=== PATIENT | female | born 1975 | race Caucasian/White ===

== ENCOUNTER 2020-10-29 11:01 | Emergency (ER) | payer MEDICAID ==
[~2020-10-29] VITALS: Ht 157.5 cm; Wt 63.0 kg
[2020-10-29 11:18] VITALS: BP_SYST 129
--- NOTE | 2020-10-29 11:20 | NUR ---
Pt. placed in bed 4 by Markos, report rec'd
--- NOTE | 2020-10-29 11:30 | NUR ---
pt. came in with c/o right sided lower quadrant abd pain with N/V for 4 days, rates pain 12/10
--- NOTE | 2020-10-29 11:36 | NUR ---
ER at bedside examining patient.
[2020-10-29] MEDS ORDERED: KETOROLAC TROMETHAMINE 60 MG/2 ML VIAL IM ONE (11:45)
[2020-10-29 12:11] LABS: BASOPHILS % (AUTO) 0.4 % (0.0-2.0); EOSINOPHILS % (AUTO) 0.8 % (0.0-4.0); HEMATOCRIT 38.3 % (36-48); HEMOGLOBIN 12.7 g/dL (12.0-16.0); LYMPHOCYTES # (AUTO) 2.9 K/uL (1.0-5.5); LYMPHOCYTES % (AUTO) 45.5 % (20.5-51.5); MEAN CORPUSCULAR HEMOGLOBIN 30 pg (27-31); MEAN CORPUSCULAR HGB CONC 33 % (32-36); MEAN CORPUSCULAR VOLUME 90 fL (79.0-98.0); MONOCYTES # (AUTO) 0.4 K/uL (0.0-1.0); MONOCYTES % (AUTO) 7.1 % (1.7-9.3); NEUTROPHILS # (AUTO) 2.9 K/uL (1.8-7.7); NEUTROPHILS % (AUTO) 46.2 % (40.0-70.0); PLATELET COUNT (AUTO) 193 K/uL (130-430); RED BLOOD CELL COUNT(AUTO) 4.25 MIL/uL (4.2-6.2); WHITE BLOOD COUNT (AUTO) 6.3 K/uL (4.8-10.8)
--- NOTE | 2020-10-29 12:13 | NUR ---
pt returned from CT scan, IM toradol given
[2020-10-29 12:23] LABS: CALCIUM 8.5 mg/dL (8.4-11.0); CREATININE 0.79 mg/dL (0.55-1.30); POTASSIUM 3.5 mmol/L (3.5-5.1)
[2020-10-29 12:29] LABS: ALBUMIN 3.7 g/dL (3.4-4.8); TOTAL BILIRUBIN 0.3 mg/dL (0.0-1.0)
[2020-10-29] MEDS ORDERED: TRAM50TA PO (12:47)
[2020-10-29] MEDS ORDERED: MAGN296S30 PO ×2 (12:47→13:03)
[2020-10-29 13:11] VITALS: BP_SYST 102
--- NOTE | 2020-10-29 13:12 | NUR ---
Patient given written and verbal discharge instructions and verbalizes understanding. Dr. Yanez discussed with patient the results and treatment provided. Patient in stable condition. ID arm band removed. Rx of Magnesium Citrate and Tramadol given. Patient educated on pain management and to follow up with PMD. Pain Scale 3. Opportunity for questions provided and answered. Medication side effect fact sheet provided.
== END 2020-10-29 13:11 | disposition home or self-care (01) ==
LOC: SED 11:01
DX: R10.31 Right lower quadrant pain (principal); R11.0 Nausea; Z79.899 Other long term (current) drug therapy
CPT/HCPCS: 36415; 74176; 76376; 80053; 81002; 83690; 85025; 96372; 99284; J1885

== ENCOUNTER 2021-07-16 12:50 | Inpatient (IN) | payer MEDICAID, SELFPAY ==
[~2021-07-16] VITALS: Ht 157.5 cm; Wt 64.0 kg
[~2021-07-16 12:50] MED LIST: MAGN296S8 PO; TRAM50TA PO
[2021-07-16 13:09] VITALS: BP_SYST 119
[2021-07-16 13:36] LABS: BILIRUBIN,URINE NEGATIVE (NEGATIVE); BLOOD, URINE 2+ (NEGATIVE); CLARITY/URINE SL CLOUDY (CLEAR); COLOR,URINE YELLOW (YELLOW); GLUCOSE,URINE NEGATIVE (NEGATIVE); KETONES,URINE TRACE (NEGATIVE); LEUKOCYTE ESTERASE ,URINE 1+ (NEGATIVE); NITRITE, URINE NEGATIVE (NEGATIVE); PROTEIN URINE TRACE (NEGATIVE)
[2021-07-16 14:14] LABS: CALCIUM 8.6 mg/dL (8.4-11.0); CREATININE 0.79 mg/dL (0.55-1.30); POTASSIUM 3.8 mmol/L (3.5-5.1)
[2021-07-16] MEDS ORDERED: KETOROLAC TROMETHAMINE 30 MG VIAL IVP ONE (14:15)
[2021-07-16] MEDS ORDERED: NACL 0.9% 2,000 ML IV ONE (14:15)
[2021-07-16] MEDS ORDERED: PIPERACILLIN/TAZO 3.375 GM in NS 50 ML IV ONE (14:15)
[2021-07-16 14:19] LABS: ALBUMIN 3.4 g/dL (3.4-4.8); C-REACTIVE PROTEIN QUANT 9.4 mg/dL (0-0.5); TOTAL BILIRUBIN 1.1 mg/dL (0.0-1.0)
[2021-07-16 14:20] LABS: BASOPHILS % (AUTO) 0.2 % (0.0-2.0); EOSINOPHILS % (AUTO) 0.4 % (0.0-4.0); HEMOGLOBIN 13.2 g/dL (12.0-16.0); LYMPHOCYTES # (AUTO) 1.7 K/uL (1.0-5.5); LYMPHOCYTES % (AUTO) 15.5 % (20.5-51.5); MEAN CORPUSCULAR HEMOGLOBIN 28 pg (27-31); MEAN CORPUSCULAR HGB CONC 33 % (32-36); MEAN CORPUSCULAR VOLUME 86 fL (79.0-98.0); MONOCYTES # (AUTO) 0.7 K/uL (0.0-1.0); MONOCYTES % (AUTO) 6.7 % (1.7-9.3); NEUTROPHILS # (AUTO) 8.5 K/uL (1.8-7.7); NEUTROPHILS % (AUTO) 77.2 % (40.0-70.0); PLATELET COUNT (AUTO) 237 K/uL (130-430); RED BLOOD CELL COUNT(AUTO) 4.66 MIL/uL (4.2-6.2); RED CELL DISTRIBUTION WIDTH 14.5 % (9.0-15.0); WHITE BLOOD COUNT (AUTO) 10.9 K/uL (4.8-10.8)
[2021-07-16 14:22] LABS: BACTERIA,URINE FEW /HPF (None Seen)
[2021-07-16] MEDS ORDERED: PIPERACILLIN/TAZOBACTAM 3.375 GM/VIAL (ZOSYN) IV ONE (14:26)
[2021-07-16] MEDS ORDERED: PHENAZOPYRIDINE HCL 100 MG TABLET PO ONE (16:15)
[2021-07-16] MEDS ORDERED: LACTULOSE 20 GM/30 ML UDC PO ONE (16:30)
[2021-07-16] MEDS ORDERED: GENTAMICIN 120 mg/100 mL NS 100 ML IV ONE (16:30)
[2021-07-16] MEDS ORDERED: MAGNESIUM CITRATE 300 ML ORAL SOLUTION PO ONE (16:30)
[2021-07-16] MEDS ORDERED: FAMOTIDINE PF 20 MG/2 ML VIAL IVP ONE (16:45)
[2021-07-16] MEDS ORDERED: TEMAZEPAM 15 MG CAPSULE PO PRN (17:00)
[2021-07-16] MEDS ORDERED: MINERAL OIL 133 ML ENEMA RC ONE (17:00)
[2021-07-16] MEDS ORDERED: SODIUM PHOSPHATE,MONO-DIBASIC 133 ML ENEMA RC ONE (17:00)
[2021-07-16 17:53] VITALS: BP_SYST 92
[2021-07-16] MEDS: PHENAZOPYRIDINE HCL 100 MG TABLET PO SCH (18:30)
[2021-07-16 20:00] VITALS: BP_SYST 116
[2021-07-16] MEDS: PIPERACILLIN/TAZO 3.375/DEX-IS 50 ML IV SCH (20:44)
[2021-07-16] MEDS: NACL 0.9% 1,000 ML IV SCH (20:48)
[2021-07-16] MEDS: FAMOTIDINE PF 20 MG/2 ML VIAL IVP SCH (21:00)
[2021-07-16] MEDS: DOCUSATE SODIUM 250 MG CAPSULE PO SCH (22:13)
[2021-07-16] MEDS: LACTOBACILLUS RHAMNOSUS GG 1 CAP CAPSULE PO SCH (22:14)
[2021-07-17 00:30] VITALS: BP_SYST 106
[2021-07-17] MEDS: ACETAMINOPHEN 325 MG TABLET PO PRN ×3 (00:46→17:49)
[2021-07-17] MEDS: PIPERACILLIN/TAZO 3.375/DEX-IS 50 ML IV SCH ×4 (01:16→17:49)
[2021-07-17] MEDS: NACL 0.9% 1,000 ML IV SCH ×2 (03:12→11:31)
[2021-07-17 07:19] LABS: ALBUMIN 2.7 g/dL (3.4-4.8); CALCIUM 8.2 mg/dL (8.4-11.0); CREATININE 0.82 mg/dL (0.55-1.30); POTASSIUM 3.4 mmol/L (3.5-5.1); TOTAL BILIRUBIN 0.6 mg/dL (0.0-1.0)
[2021-07-17 08:00] VITALS: BP_SYST 94
[2021-07-17 08:08] LABS: BASOPHILS % (AUTO) 0.3 % (0.0-2.0); EOSINOPHILS # (AUTO) 0.1 K/uL (0.0-0.4); EOSINOPHILS % (AUTO) 0.4 % (0.0-4.0); HEMATOCRIT 36.6 % (36-48); HEMOGLOBIN 11.7 g/dL (12.0-16.0); MEAN CORPUSCULAR HEMOGLOBIN 28 pg (27-31); MEAN CORPUSCULAR HGB CONC 32 % (32-36); MEAN CORPUSCULAR VOLUME 88 fL (79.0-98.0); MONOCYTES # (AUTO) 0.8 K/uL (0.0-1.0); MONOCYTES % (AUTO) 6.8 % (1.7-9.3); NEUTROPHILS # (AUTO) 8.1 K/uL (1.8-7.7); NEUTROPHILS % (AUTO) 67.5 % (40.0-70.0); PLATELET COUNT (AUTO) 220 K/uL (130-430); RED BLOOD CELL COUNT(AUTO) 4.19 MIL/uL (4.2-6.2); RED CELL DISTRIBUTION WIDTH 14.6 % (9.0-15.0); WHITE BLOOD COUNT (AUTO) 12.1 K/uL (4.8-10.8)
[2021-07-17] MEDS: DOCUSATE SODIUM 250 MG CAPSULE PO SCH ×3 (09:00→21:42)
[2021-07-17] MEDS: PHENAZOPYRIDINE HCL 100 MG TABLET PO SCH ×3 (09:10→17:49)
[2021-07-17] MEDS: FAMOTIDINE PF 20 MG/2 ML VIAL IVP SCH ×2 (09:10→21:45)
[2021-07-17] MEDS: LACTOBACILLUS RHAMNOSUS GG 1 CAP CAPSULE PO SCH ×2 (09:12→21:43)
[2021-07-17] MEDS ORDERED: POTASSIUM CHLORIDE 20 MEQ TAB.PRT.SR PO ONE (12:15)
[2021-07-17 12:17] VITALS: BP_SYST 110
[2021-07-17] MEDS ORDERED: MAGNESIUM OXIDE 400 MG TABLET PO ONE (13:00)
[2021-07-17 16:52] VITALS: BP_SYST 109
[2021-07-17] MEDS: MAGNESIUM OXIDE 400 MG TABLET PO SCH (21:43)
[2021-07-18] MEDS: MORPHINE 4 MG INJ. 4 MG/ML VIAL IVP PRN ×4 (00:54→12:17)
[2021-07-18] MEDS: ACETAMINOPHEN 325 MG TABLET PO PRN ×3 (00:57→21:58)
[2021-07-18] MEDS: NACL 0.9% 1,000 ML IV SCH ×3 (00:58→16:32)
[2021-07-18] MEDS: PIPERACILLIN/TAZO 3.375/DEX-IS 50 ML IV SCH ×4 (00:58→16:31)
[2021-07-18 05:08] VITALS: BP_SYST 96
[2021-07-18 07:27] LABS: BASOPHILS % (AUTO) 0.3 % (0.0-2.0); EOSINOPHILS % (AUTO) 0.4 % (0.0-4.0); HEMATOCRIT 36.5 % (36-48); LYMPHOCYTES # (AUTO) 2.4 K/uL (1.0-5.5); MEAN CORPUSCULAR HEMOGLOBIN 28 pg (27-31); MEAN CORPUSCULAR HGB CONC 33 % (32-36); MEAN CORPUSCULAR VOLUME 87 fL (79.0-98.0); MONOCYTES # (AUTO) 0.8 K/uL (0.0-1.0); MONOCYTES % (AUTO) 6.5 % (1.7-9.3); NEUTROPHILS # (AUTO) 8.6 K/uL (1.8-7.7); NEUTROPHILS % (AUTO) 72.8 % (40.0-70.0); PLATELET COUNT (AUTO) 228 K/uL (130-430); RED BLOOD CELL COUNT(AUTO) 4.21 MIL/uL (4.2-6.2); RED CELL DISTRIBUTION WIDTH 14.3 % (9.0-15.0); WHITE BLOOD COUNT (AUTO) 11.8 K/uL (4.8-10.8)
[2021-07-18 08:00] VITALS: BP_SYST 102
[2021-07-18] MEDS: DOCUSATE SODIUM 250 MG CAPSULE PO SCH ×3 (08:14→21:17)
[2021-07-18] MEDS: FAMOTIDINE PF 20 MG/2 ML VIAL IVP SCH ×2 (08:14→21:19)
[2021-07-18] MEDS: MAGNESIUM OXIDE 400 MG TABLET PO SCH ×2 (08:14→21:18)
[2021-07-18] MEDS: LACTOBACILLUS RHAMNOSUS GG 1 CAP CAPSULE PO SCH ×2 (08:15→21:18)
[2021-07-18] MEDS: PHENAZOPYRIDINE HCL 100 MG TABLET PO SCH ×3 (08:15→16:31)
[2021-07-18 08:52] LABS: CALCIUM 8.6 mg/dL (8.4-11.0); CREATININE 0.62 mg/dL (0.55-1.30); POTASSIUM 3.8 mmol/L (3.5-5.1)
[2021-07-18 12:00] VITALS: BP_SYST 106
[2021-07-18] MEDS ORDERED: DOCUSATE SODIUM 100 MG CAPSULE PO ONE (15:15)
[2021-07-18 16:00] VITALS: BP_SYST 99
[2021-07-18] MEDS: BISACODYL 5 MG TABLET.DR (DULCOLAX) PO PRN (16:44)
[2021-07-19] MEDS: PIPERACILLIN/TAZO 3.375/DEX-IS 50 ML IV SCH ×5 (00:19→23:24)
[2021-07-19 00:25] VITALS: BP_SYST 106
[2021-07-19] MEDS: NACL 0.9% 1,000 ML IV SCH ×2 (05:52→17:44)
[2021-07-19] MEDS: MORPHINE 4 MG INJ. 4 MG/ML VIAL IVP PRN ×3 (06:16→16:21)
[2021-07-19 08:31] VITALS: BP_SYST 98
[2021-07-19] MEDS: PHENAZOPYRIDINE HCL 100 MG TABLET PO SCH ×3 (08:41→17:45)
[2021-07-19] MEDS: DOCUSATE SODIUM 250 MG CAPSULE PO SCH ×3 (08:42→20:52)
[2021-07-19] MEDS: traMADol HCL HCL 50 MG TABLET (ULTRAM) PO PRN (08:42)
[2021-07-19] MEDS: FAMOTIDINE PF 20 MG/2 ML VIAL IVP SCH ×2 (08:43→21:02)
[2021-07-19] MEDS: LACTOBACILLUS RHAMNOSUS GG 1 CAP CAPSULE PO SCH ×2 (08:43→20:48)
[2021-07-19] MEDS: MAGNESIUM OXIDE 400 MG TABLET PO SCH ×2 (08:43→20:48)
[2021-07-19 09:24] LABS: BASOPHILS % (AUTO) 0.2 % (0.0-2.0); EOSINOPHILS # (AUTO) 0.1 K/uL (0.0-0.4); EOSINOPHILS % (AUTO) 0.5 % (0.0-4.0); HEMATOCRIT 37.2 % (36-48); LYMPHOCYTES % (AUTO) 17.6 % (20.5-51.5); MEAN CORPUSCULAR HEMOGLOBIN 28 pg (27-31); MEAN CORPUSCULAR HGB CONC 32 % (32-36); MEAN CORPUSCULAR VOLUME 86 fL (79.0-98.0); MONOCYTES # (AUTO) 0.6 K/uL (0.0-1.0); MONOCYTES % (AUTO) 5.2 % (1.7-9.3); NEUTROPHILS # (AUTO) 8.8 K/uL (1.8-7.7); NEUTROPHILS % (AUTO) 76.5 % (40.0-70.0); PLATELET COUNT (AUTO) 240 K/uL (130-430); RED BLOOD CELL COUNT(AUTO) 4.33 MIL/uL (4.2-6.2); RED CELL DISTRIBUTION WIDTH 14.4 % (9.0-15.0); WHITE BLOOD COUNT (AUTO) 11.6 K/uL (4.8-10.8)
[2021-07-19 09:51] LABS: ALBUMIN 2.6 g/dL (3.4-4.8); CALCIUM 8.6 mg/dL (8.4-11.0); CREATININE 0.72 mg/dL (0.55-1.30); POTASSIUM 3.2 mmol/L (3.5-5.1); TOTAL BILIRUBIN 0.4 mg/dL (0.0-1.0)
[2021-07-19 11:03] LABS: ERYTHROCYTE SEDIMENTATION RATE 79 MM/HR (0-20)
[2021-07-19 12:00] VITALS: BP_SYST 95
[2021-07-19] MEDS: ACETAMINOPHEN 325 MG TABLET PO PRN ×2 (13:51→21:20)
[2021-07-19] MEDS ORDERED: POTASSIUM CHLORIDE 20 MEQ TAB.PRT.SR PO ONE (15:45)
[2021-07-19 16:13] VITALS: BP_SYST 100
[2021-07-19] MEDS ORDERED: FLUCONAZOLE 200 MG TABLET (DIFLUCAN) PO ONE (17:30)
[2021-07-19 20:00] VITALS: BP_SYST 99
[2021-07-19 20:41] LABS: BILIRUBIN,URINE NEGATIVE (NEGATIVE); BLOOD, URINE 1+ (NEGATIVE); CLARITY/URINE CLEAR (CLEAR); COLOR,URINE YELLOW (YELLOW); GLUCOSE,URINE TRACE (NEGATIVE); KETONES,URINE NEGATIVE (NEGATIVE); LEUKOCYTE ESTERASE ,URINE TRACE (NEGATIVE); NITRITE, URINE POSITIVE (NEGATIVE); PROTEIN URINE NEGATIVE (NEGATIVE)
[2021-07-19] MEDS: POTASSIUM CHLORIDE 20 MEQ TAB.PRT.SR PO SCH (20:48)
[2021-07-19] MEDS: ONDANSETRON HCL 4 MG/2 ML VIAL IVP PRN (21:02)
[2021-07-19 21:13] LABS: BACTERIA,URINE MODERATE /HPF (None Seen)
[2021-07-20] VITALS: BP_SYST 99
[2021-07-20] MEDS: NACL 0.9% 1,000 ML IV SCH ×3 (00:45→17:51)
[2021-07-20] MEDS: PIPERACILLIN/TAZO 3.375/DEX-IS 50 ML IV SCH ×4 (06:37→23:38)
[2021-07-20] MEDS: MORPHINE 4 MG INJ. 4 MG/ML VIAL IVP PRN (06:51)
[2021-07-20] MEDS: ONDANSETRON HCL 4 MG/2 ML VIAL IVP PRN (06:53)
[2021-07-20 08:00] VITALS: BP_SYST 97
[2021-07-20] MEDS: LACTOBACILLUS RHAMNOSUS GG 1 CAP CAPSULE PO SCH ×2 (08:30→20:54)
[2021-07-20] MEDS: MAGNESIUM OXIDE 400 MG TABLET PO SCH ×2 (08:30→20:55)
[2021-07-20] MEDS: PHENAZOPYRIDINE HCL 100 MG TABLET PO SCH ×3 (08:30→17:36)
[2021-07-20] MEDS: DOCUSATE SODIUM 250 MG CAPSULE PO SCH ×2 (08:30→20:55)
[2021-07-20] MEDS: FLUCONAZOLE 100 MG TABLET (DIFLUCAN) PO SCH (08:30)
[2021-07-20] MEDS: POTASSIUM CHLORIDE 20 MEQ TAB.PRT.SR PO SCH ×2 (08:30→20:54)
[2021-07-20] MEDS: FAMOTIDINE PF 20 MG/2 ML VIAL IVP SCH ×2 (08:31→20:54)
[2021-07-20 09:29] LABS: BASOPHILS % (AUTO) 0.1 % (0.0-2.0); EOSINOPHILS # (AUTO) 0.1 K/uL (0.0-0.4); EOSINOPHILS % (AUTO) 0.6 % (0.0-4.0); HEMATOCRIT 34.5 % (36-48); HEMOGLOBIN 11.4 g/dL (12.0-16.0); LYMPHOCYTES % (AUTO) 18.4 % (20.5-51.5); MEAN CORPUSCULAR HEMOGLOBIN 29 pg (27-31); MEAN CORPUSCULAR HGB CONC 33 % (32-36); MEAN CORPUSCULAR VOLUME 86 fL (79.0-98.0); MONOCYTES # (AUTO) 0.8 K/uL (0.0-1.0); MONOCYTES % (AUTO) 7.5 % (1.7-9.3); NEUTROPHILS # (AUTO) 7.9 K/uL (1.8-7.7); NEUTROPHILS % (AUTO) 73.4 % (40.0-70.0); PLATELET COUNT (AUTO) 238 K/uL (130-430); RED BLOOD CELL COUNT(AUTO) 3.99 MIL/uL (4.2-6.2); RED CELL DISTRIBUTION WIDTH 14.2 % (9.0-15.0); WHITE BLOOD COUNT (AUTO) 10.7 K/uL (4.8-10.8)
[2021-07-20 09:45] LABS: CALCIUM 8.9 mg/dL (8.4-11.0); CREATININE 0.67 mg/dL (0.55-1.30); POTASSIUM 3.7 mmol/L (3.5-5.1)
[2021-07-20 09:49] LABS: C-REACTIVE PROTEIN QUANT 13.8 mg/dL (0-0.5)
[2021-07-20 10:08] LABS: ERYTHROCYTE SEDIMENTATION RATE 85 MM/HR (0-20)
[2021-07-20] MEDS: traMADol HCL HCL 50 MG TABLET (ULTRAM) PO PRN ×2 (11:17→23:37)
[2021-07-20 16:18] VITALS: BP_SYST 95
[2021-07-20 20:37] VITALS: BP_SYST 105
[2021-07-21 01:34] VITALS: BP_SYST 99
[2021-07-21] MEDS: NACL 0.9% 1,000 ML IV SCH ×2 (05:36→17:47)
[2021-07-21] MEDS: MORPHINE 4 MG INJ. 4 MG/ML VIAL IVP PRN ×2 (05:37→21:17)
[2021-07-21] MEDS: PIPERACILLIN/TAZO 3.375/DEX-IS 50 ML IV SCH ×3 (05:48→17:46)
[2021-07-21 08:15] VITALS: BP_SYST 95
[2021-07-21] MEDS ORDERED: POTASSIUM CHLORIDE 20 MEQ TAB.PRT.SR ONE (09:53)
[2021-07-21] MEDS: POTASSIUM CHLORIDE 20 MEQ TAB.PRT.SR PO SCH ×2 (09:56→20:54)
[2021-07-21] MEDS: MAGNESIUM OXIDE 400 MG TABLET PO SCH ×2 (09:56→20:54)
[2021-07-21] MEDS: LACTOBACILLUS RHAMNOSUS GG 1 CAP CAPSULE PO SCH ×2 (09:56→20:54)
[2021-07-21] MEDS: FLUCONAZOLE 100 MG TABLET (DIFLUCAN) PO SCH (09:57)
[2021-07-21] MEDS: DOCUSATE SODIUM 250 MG CAPSULE PO SCH ×2 (09:57→20:54)
[2021-07-21] MEDS: FAMOTIDINE PF 20 MG/2 ML VIAL IVP SCH ×2 (09:58→20:54)
[2021-07-21] MEDS: PHENAZOPYRIDINE HCL 100 MG TABLET PO SCH ×3 (09:58→17:45)
[2021-07-21 12:05] VITALS: BP_SYST 98
[2021-07-21] MEDS: traMADol HCL HCL 50 MG TABLET (ULTRAM) PO PRN (12:11)
[2021-07-21 16:50] VITALS: BP_SYST 100
[2021-07-21 22:29] VITALS: BP_SYST 99
[2021-07-22] MEDS: PIPERACILLIN/TAZO 3.375/DEX-IS 50 ML IV SCH ×3 (00:23→12:24)
[2021-07-22] MEDS: BISACODYL 5 MG TABLET.DR (DULCOLAX) PO PRN (00:33)
[2021-07-22 01:56] VITALS: BP_SYST 100
[2021-07-22] MEDS: NACL 0.9% 1,000 ML IV SCH ×2 (05:42→11:55)
[2021-07-22 08:13] VITALS: BP_SYST 96
[2021-07-22] MEDS: FLUCONAZOLE 100 MG TABLET (DIFLUCAN) PO SCH (08:30)
[2021-07-22] MEDS: MAGNESIUM OXIDE 400 MG TABLET PO SCH (08:30)
[2021-07-22] MEDS: DOCUSATE SODIUM 250 MG CAPSULE PO SCH ×2 (08:31→08:38)
[2021-07-22] MEDS: LACTOBACILLUS RHAMNOSUS GG 1 CAP CAPSULE PO SCH (08:31)
[2021-07-22] MEDS: PHENAZOPYRIDINE HCL 100 MG TABLET PO SCH ×2 (08:31→11:55)
[2021-07-22] MEDS: FAMOTIDINE PF 20 MG/2 ML VIAL IVP SCH (08:32)
[2021-07-22] MEDS: POTASSIUM CHLORIDE 20 MEQ TAB.PRT.SR PO SCH (08:32)
[2021-07-22] MEDS: ONDANSETRON HCL 4 MG/2 ML VIAL IVP PRN (11:56)
[2021-07-22] MEDS: traMADol HCL HCL 50 MG TABLET (ULTRAM) PO PRN (11:57)
[2021-07-22 13:45] VITALS: BP_SYST 100
[2021-07-22] MEDS ORDERED: DOCU-144 PO ×2 (15:43→15:47)
[2021-07-22] MEDS ORDERED: BISA-79 PO (15:48)
[2021-07-22] MEDS ORDERED: DIF100 PO (15:55)
[2021-07-22 16:00] VITALS: BP_SYST 100
[2021-07-22] MEDS ORDERED: CEPH250C PO ×2 (16:00→16:02)
[2021-07-22] MEDS ORDERED: L.RH1CAP PO (16:12)
[2021-07-22 17:36] VITALS: BP_SYST 100
[2021-07-22 17:45] VITALS: BP_SYST 100
== END 2021-07-22 18:20 | disposition home or self-care (01) | DRG 720 ==
LOC: SED 12:50 → STU 16:24 → SMU 07-17 12:28
PROVIDERS: ADMIT Internal Medicine; ATTEND Internal Medicine
DX: A41.9 Sepsis, unspecified organism (principal); E44.0 Moderate protein-calorie malnutrition; N30.00 Acute cystitis without hematuria; K59.00 Constipation, unspecified; T81.49XA Infection following a procedure, other surgical site, initial encounter; Z20.822 Contact with and (suspected) exposure to COVID-19; Y83.6 Removal of other organ (partial) (total) as the cause of abnormal reaction of the patient, or of later complication, without mention of misadventure at the time of the procedure; Z90.710 Acquired absence of both cervix and uterus; Y92.89 Other specified places as the place of occurrence of the external cause; Z68.25 Body mass index [BMI] 25.0-25.9, adult
CPT/HCPCS: 36415; 71046-TC; 72195; 76376; 80048; 80053; 81000; 82150; 83605; 83690; 83735; 85025; 85651-TC; 86140; 87040; 87086; 94010; 94760; 96365; 96375; 99291; G0378; J1580; J1885; J2270; J2405; J2543; J3490